=== PATIENT | female | born 1990 | race Caucasian/White ===

== ENCOUNTER 2020-10-24 07:20 | Outpatient (CLI) | payer BC, SELFPAY ==
[2020-10-24 08:19] LABS: Glucose Fasting Gestational 88 mg/dL (>/=95)
[2020-10-24 10:45] LABS: Glucose 1 Hour Gest 168 mg/dL (>/=180)
[2020-10-24 11:01] LABS: Glucose 2 Hour Gest 136 mg/dL (>/= 155)
[2020-10-24 11:51] LABS: Glucose 3 Hour Gest 83 mg/dL (>/=140)
== END 2020-10-24 07:21 | disposition home or self-care (01) ==
PROVIDERS: Visit Provider Obstetrics & Gynecology
DX: O99.810 Abnormal glucose complicating pregnancy (principal); Z3A.00 Weeks of gestation of pregnancy not specified
CPT/HCPCS: 36415; 82951; 82952

== ENCOUNTER 2020-11-30 02:10 | Inpatient (IN) | payer BC, SELFPAY ==
[2020-11-30] VITALS (18 sets, daily range): BP systolic 96–121; BP diastolic 54–75; PULSE 74–102; RESP 16–20; TEMP 36.5–37.1; O2SAT 99; BMI 29.3
--- OUTSIDE RECORDS SUMMARY | 2020-11-30 02:23 | XMS_ITS ---
:1990 Author Care Team Providers Name Role Phone ANNALISA BRIDGES MD Primary Care Provider [phone] Allergies Code Code System Name Reaction Severity Status Onset NKDA ? Medications Name Status Start Date Stop Date ? ? ampicillin 500 mg capsule Completed ? 2019 Diflucan 150 mg tablet Completed 04/25/2019 take 1 tablet by oral route once Fluzone Quad (PF) 60 mcg (15 mcg x 4)/0.5 mL IM syring e Completed ? 09/30/2020 PHARMACY ADMINISTERED Lutera (28) 0.1 mg-20 mcg tablet Completed 09/17/2016 03/24/2018 take 1 tablet by oral route every day + DHA Active ? Not available Probiotic Active ? Not available Problems Name Status Onset Date Source ? Test Negative Unknown 01/01/2013 History Abnormal Cervical Papanicolaou Smear Active 07/25/2013 History Cytologic Finding Unknown 07/25/2013 History Screening for Malignant Neoplasm of Unknown 02/20/2014 History Cervix Adult Health Examination Unknown 03/07/2015 History Specialized Medical Examination Unknown 03/07/[address] Concept Unknown 03/24/[address] Concept Unknown 03/24/2018 History Secondary Amenorrhea Unknown 04/20/2018 History Miscarriage Unknown 05/08/2018 History Threatened Miscarriage Unknown 05/08/2018 History Finding of Contents of Cervix Unknown 05/08/2018 Hi story Detection Examination Unknown 08/04/2018 History Screening Unknown 08/28/2018 History , Childbirth
--- OUTSIDE RECORDS SUMMARY | 2020-11-30 02:23 | XMS_ITS | Encounter Summary ---
:1990 Author Care Team Providers Name Role Phone Claribel Sewell MD Primary Care Provider [phone] Reason for Visit OB visit [id number] Assessment and Plan 1. Routine care Discussion Note: None recorded.Patient educational handouts: No information available. Plan of Care Reminders Provider Appointments Ob Routine Saima dowling Shiloh Garciae, 12/03/2020 CNM 3:15PM Lab None ? ? recorded. Referral None ? ? recorded. Procedures None ? ? recorded. Surgeries None ? ? recorded. Imaging None ? ? recorded. Medications Name Start Date ? ? + DHA ? Probiotic ? Medications Administered None recorded. Vitals Height Weight BMI Blood Pressure 5 ft 6.5 in 176 lbs 28 kg/m2 106/78 mm[Hg] Results Lab Results None recorded. Allergies Code Code System Name Reaction Severity Onset NKDA ? ? ? Problems Name Status Onset Date Source ? Abnormal Cervical Papanicolaou Smear Active 07/25/2013 History Active 06/19/2020 ?
--- OUTSIDE RECORDS SUMMARY | 2020-11-30 02:23 | XMS_ITS | Encounter Summary ---
:1990 Author Care Team Providers Name Role Phone Claribel Sewell MD Primary Care Provider [phone] Reason for Visit OB visit OB [id number] EDC 12/31/2020 LMP 03/26/2020 Assessment and Plan Assessment Note Patient is ___weeks . Discu ssed plan. 1. Routine care Discussion Note: None recorded.Patient educational handouts: No information available. Plan of Care Reminders Provider Appointments Ob Routine Saima Guzman, 12/03/2020 CNM 3:15PM Lab None ? ? recorded. Referral None ? ? recorded. Procedures None ? ? recorded. Surgeries None ? ? recorded. Imaging None ? ? recorded. Medications Name Start Date ? ? + DHA ? Probiotic ? Medications Administered None recorded. Vitals Height Weight BMI Blood Pressure 5 ft 6.5 in 185 lbs 29.4 kg/m2 105/68 mm[Hg] Results Lab Results None recorded. Allergies Code Code System Name Reaction Severity Onset NKDA ? ? ? Problems Name Status Onset Date Source ?
--- OUTSIDE RECORDS SUMMARY | 2020-11-30 02:23 | XMS_ITS | Encounter Summary ---
:1990 Author Care Team Providers Name Role Phone Claribel Sewell MD Primary Care Provider [phone] Reason for Visit None recorded. Assessment and Plan 1. screening for malfo rmation ? US, obstetric, 2nd or 3rd trimester Discussion Note: None recorded.Patient educational handouts: No information available. Plan of Care Reminders Provider Appointments Ob Routine Saima Guzman, 12/03/2020 CNM 3:15PM Lab None ? ? recorded. Referral None ? ? recorded. Procedures None ? ? recorded. Surgeries None ? ? recorded. Imaging , [place] [facility], 2Nd or 3Rd 09/05/2020 Trimester Medications Name Start Date ? ? + DHA ? Probiotic ? Medications Administered None recorded. Vitals None recorded. Results Lab Results None recorded. Allergies Code Code System Name Reaction Severity Onset NKDA ? ? ? Problems Name Status Onset Date Source ? Abnormal Cervical Papanicolaou Smear Active 07/25/2013 History Active 06/19/2020 ? Procedu
--- OUTSIDE RECORDS SUMMARY | 2020-11-30 02:23 | XMS_ITS | Encounter Summary ---
:1990 Author Care Team Providers Name Role Phone Claribel Sewell MD Primary Care Provider [phone] Reason for Visit None recorded. Assessment and Plan 1. screening ? US, obstetric, follow-up Discussion Note: None recorded.Patient educational handouts: No information available. Plan of Care Reminders Provider Appointments Ob Routine Saima Guzman, 12/03/2020 CNM 3:15PM Lab None ? ? recorded. Referral None ? ? recorded. Procedures None ? ? recorded. Surgeries None ? ? recorded. Imaging , [place] [facility], Follow-up 09/30/2020 Medications Name Start Date ? ? + DHA ? Probiotic ? Medications Administered None recorded. Vitals None recorded. Results Lab Results None recorded. Allergies Code Code System Name Reaction Severity Onset NKDA ? ? ? Problems Name Status Onset Date Source ? Abnormal Cervical Papanicolaou Smear Active 07/25/2013 History Active 06/19/2020 ? Procedures [facility]
--- OUTSIDE RECORDS SUMMARY | 2020-11-30 02:23 | XMS_ITS | Encounter Summary ---
:1990 Author Care Team Providers Name Role Phone Claribel Sewell MD Primary Care Provider [phone] Reason for Visit None recorded. Assessment and Plan 1. Poor growth affecting m anagement ? US, obstetric, follow-up Discussion Note: None recorded.Patient educational handouts: No information available. Plan of Care Reminders Provider Appointments Ob Routine Saima Guzman, 12/03/2020 CNM 3:15PM Lab None ? ? recorded. Referral None ? ? recorded. Procedures None ? ? recorded. Surgeries None ? ? recorded. Imaging , [place] [facility], Follow-up 10/31/2020 Medications Name Start Date ? ? + DHA ? Probiotic ? Medications Administered None recorded. Vitals None recorded. Results Lab Results None recorded. Allergies Code Code System Name Reaction Severity Onset NKDA ? ? ? Problems Name Status Onset Date Source ? Abnormal Cervical Papanicolaou Smear Active 07/25/2013 History Active 06/19/2020 ? Procedures
--- OUTSIDE RECORDS SUMMARY | 2020-11-30 02:23 | XMS_ITS | Encounter Summary ---
:1990 Author Care Team Providers Name Role Phone Claribel Sewell MD Primary Care Provider [phone] Reason for Visit OB visit OB [id number] EDC 12/31/2020 LMP 03/26/2020 Assessment and Plan Assessment Note Patient is _24__weeks . Dis cussed plan. 1. Routine care Discussion Note: None [...] BMI Blood Pressure 5 ft 6.5 in 171 lbs 27.2 kg/m2 109/71 mm[Hg] Results Lab Results None recorded. Allergies Code Code System Name Reaction Severity Onset NKDA ? ? ? Problems Name Status Onset Date Source ?
--- OUTSIDE RECORDS SUMMARY | 2020-11-30 02:23 | XMS_ITS | Encounter Summary ---
:1990 Author Care Team Providers Name Role Phone Claribel Sewell MD Primary Care Provider [phone] Reason for Visit OB visit OB [id number] EDC 12/31/2020 LMP 03/26/2020 Assessment and Plan Assessment Note Patient is __31_weeks . Dis cussed plan. Additional precautionary measures were taken to minimize potentia l exposure to the Covid-19 virus during this patient?s visit, including available fernandez d public health technologist upon arrive, temperature check and being asked a series of screening qu estions. All staff wore face coverings during this encounter, as well as provided jarad tional cleaning and sanitizing of all surfaces, including countertops, pens, c hairs, door handles, light switches, etc, prior to and following the patient?s vis it. 1. Routine care Discussion Note: None recorded.Patient educational handouts: No information available. Plan of Care Reminders Provider Appointments Ob Routine Saima Guzman, 12/03/2020 CNM 3:15PM Lab None ? ? recorded. Referral None ? ? recorded. Procedures None ? ? recorded. Surgeries None ? ? recorded. Imaging None ? ? recorded. Medications Name Start Date ? ? + DHA ? Probiotic ? Medications Admi
--- OUTSIDE RECORDS SUMMARY | 2020-11-30 02:23 | XMS_ITS | Encounter Summary ---
:1990 Author Care Team Providers Name Role Phone Claribel Sewell MD Primary Care Provider [phone] Reason for Visit OB visit OB [id number] EDC 12/31/2020 LMP 03/26/2020 Assessment and Plan Assessment Note Patient is __29_weeks . Dis cussed plan. 1. Routine care [...] BMI Blood Pressure 5 ft 6.5 in 180 lbs 28.6 kg/m2 110/70 mm[Hg] Results Lab Results None recorded. Allergies Code Code System Name Reaction Severity Onset NKDA ? ? ? Problems Name Status Onset Date Source ?
[2020-11-30] MEDS: OXYTOCIN 10 UNITS/ML VIAL IM (02:28)
--- NOTE | 2020-11-30 02:51 | WPDOBADMIT ---
Obstetrics - Admit Note Admission Note: 30 y/o @ 35 weeks presented in spontaneous labor at 10cm. record reviewed. No pertinent additions to the history and/or any subsequent changes in the physical findings that are not consistent with the expected course of the were found. Additions to the history and/or subsequent changes in the physical findings follow. None.
--- NOTE | 2020-11-30 02:52 | P.PCNOB_ITS ---
OB - Delivery Note Procedure Delivery date: 11/30/20 events: Labor < 37 Weeks Intrapartal events: Precipitous Labor < 3 hours Induction method: none Delivery monitor: none and external FHT (Brief fht tracing prior to delivery) Route of delivery: Episiotomy description: None Laceration Description: Perineal - 2nd Degree Quantitative Blood Loss (ml): 154 Anesthesia type: Local [place] Baby Date of : 11/30/20 Time of : 02:20 Weeks of gestation at delivery: 35 Weight (pounds): 5 Weight (ounces): 8 presentation: vertex position: Left Occiput Anterior Placenta delivery description: Spontaneous cord vessel description: Delayed Cord Clamping Narrative: Precipitous delivery. Mother and baby in stable condition. Cord gasses collected and handed off to staff.
--- NOTE | 2020-11-30 06:03 | LDADM ---
This patient, Amaya Navarro, was admitted to Labor/Delivery/Recovery 103 on 11/30/20 at 02:10. Plans for labor, pain management and were discussed with patient. Patient/family oriented to hospital policies and general routines including ID bracelet, bed and alarms, visiting hours, pain management, procedures, bathroom and other care routines, personal items, smoking policy, room service/diet and guest tray routines, security routines, and visiting hours. Patient/Family are encouraged to report perceived risks to care and to ask questions if they do not understand what they are told or what they should do. See [facility]BI[facility] for further documentation.
[2020-11-30] MEDS: WITCH HAZEL 40 PADS 1 PAD TOPICAL (06:28)
[2020-11-30] MEDS: BENZOCAINE 20% AER SPR (*SP) 56 GM CAN 1 SPRAY TOPICAL (06:29)
[2020-11-30 06:54] LABS: Basophils Percent Auto 0.2 % (0.2-1.2); Eosinophils Percent Auto 0.1 % (0-4.4); Hematocrit 33.3 % (37.0-47.0); Hemoglobin 11.4 g/dL (12.0-15.0); Immature Granulocyte Absolute 0.16 K/mm3 (0.00-0.031); Immature Granulocyte Percent A 0.9 % (0-0.5); Lymphocytes Absolute Auto 1.05 K/mm3 (0.9-3.2); Lymphocytes Percent Auto 5.9 % (18.3-44.2); Mean Corpuscular HGB Conc 34.2 g/dl (32-36); Mean Corpuscular Hemoglobin 30.6 pg (26-34); Mean Corpuscular Volume 89.3 fl (80-100); Mean Platelet Volume 9.4 fl (7.4-10.4); Monocytes Absolute Auto 0.7 K/mm3 (0.1-0.6); Monocytes Percent Auto 3.9 % (2.6-8.5); Neutrophils Absolute Auto 15.8 K/mm3 (1.3-6.7); Platelet Count Result 246 k/mm3 (150-375); Red Blood Count 3.73 M/mm3 (4.2-5.4); Red Cell Distribution Width 12.5 % (11.5-14.5); White Blood Count 17.8 K/mm3 (4.5-10.0)
--- NOTE | 2020-11-30 07:04 | PC.NURSE ---
Patient transferred to post room # 292 per wheelchair. Support person present. Oriented to unit, room, information board, rooming in, admission packet and security measures. Patient verbalizes understanding.
[2020-11-30 09:06] LABS: Rapid Plasma Reagin Non-Reactive (NonReactive)
[2020-11-30] MEDS: MULTIVIT/MIN/PREN/FOL AC/IRON TABLET 1 TAB PO (09:42)
[2020-11-30] MEDS: DOCUSATE SODIUM 100 MG CAPSULE PO ×2 (09:42→16:34)
[2020-11-30] MEDS: IBUPROFEN 600 MG TABLET PO ×3 (09:43→23:22)
[2020-11-30] MEDS: ACETAMINOPHEN 325 MG TABLET 650 MG PO ×3 (09:43→23:22)
[2020-12-01] VITALS: BP 114/73; PULSE 67; RESP 16; TEMP 36.7; O2SAT 100
[2020-12-01 06:52] LABS: Hematocrit 32.6 % (37.0-47.0); Hemoglobin 10.9 g/dL (12.0-15.0)
[2020-12-01] MEDS: BENZOCAINE 20% AER SPR (*SP) 56 GM CAN 1 SPRAY TOPICAL (07:05)
[2020-12-01] MEDS: WITCH HAZEL 40 PADS 1 PAD TOPICAL (07:05)
[2020-12-01] MEDS: DOCUSATE SODIUM 100 MG CAPSULE PO ×2 (07:05→15:37)
[2020-12-01] MEDS: MULTIVIT/MIN/PREN/FOL AC/IRON TABLET 1 TAB PO (07:05)
[2020-12-01] MEDS: LANOLIN (LANSINOH) 7.5 GM CREAM 1 APPLIC TOPICAL (07:05)
[2020-12-01] MEDS: IBUPROFEN 600 MG TABLET PO ×2 (07:06→15:36)
[2020-12-01] MEDS: ACETAMINOPHEN 325 MG TABLET 650 MG PO (07:07)
[2020-12-01 07:43] VITALS: BP 109/72; PULSE 72; PULSE 77; RESP 18; TEMP 36.4
--- NOTE | 2020-12-01 07:58 | PM.OBPNVD ---
OB - PN: Subj Subjective Date/time seen: 12/01/20 07:58 Patient comments: no complaints baby status: doing well OB - PN: Obj Data Labs CBC & Chem 7: 12/01/20 05:27 Labs: Laboratory Results - last 24 hr 11/30/20 12/01/20 06:44 05:27 Hgb 10.9 L Hct 32.6 L RPR Non-reactive OB - PN A/P Plan day: 1 Plan: routine care Time Spent With Patient Time: Total time spent is greater than 50% in coordination of care (as documented) at patient's floor/unit and/or counseling patient: Time with patient: less than 15 minutes Review of Systems Review of Systems: All systems reviewed & are unremarkable except as noted in HPI and below Exam Narrative: Exam Narrative: Fundus firm and vaginal flow controlled. No lower ext redness, warmth, or edema. Negative homans. Const: General: comfortable Chest: Breast/axilla inspection: normal inspection of the breasts Resp: Effort & Inspection: normal respiratory effort Cardio: Rate: regular rate GI: GI Palp: Yes Soft to palpation Psych: Appearance: grossly normal Affect: normal affect Attitude: cooperative Thought content: Yes Normal thought content present Judgement: Good judgement present (Psych)
--- NOTE | 2020-12-01 09:30 | PC.NURSE ---
Mother called out for assist with feeding. Consulted with patient, reports had issues with latching after delivery. Mother was given the nipple shield for latch on right breast. is now latching to left without issue. Infant is 35 4/7 weeks. Discussed how early gestation may impact latch and milk supply. Right nipple has a smaller profile than left, right breast is also more firm at areola, impacting infant latch. Mother reports pain when using shield on right breast and has been feeding each feeding on left. Offered and explained the Latch Assist to draw out right nipple. Latch Assist to mother.. Instructions given on application and cleaning of shield. Right nipple responded well, once removed nipple quickly returned to same size. Mother attempted for 5 minutes to right breast without a successful latch. Reviewed infant feeding cues, frequencies, duration of feedings, feeding elimination flow sheet, and signs of adequate intake. Demonstrated stimulation techniques to wake infant for feeding. Assisted with to breast. Reviewed positioning/alignment in cross cradle, holding breast in U hold and guided asymmetrical latch on. was able to latch correctly within a few attempts to left. nursed eagerly, with steady draws and frequent swallowing noted. Reviewed signs of a correct latch, effective nursing and suck swallow ratio. was able to maintain latch. Mother reported tenderness at times, infant had slipped to shallow latch. Demonstrated how to adjust latch more deeply while feeding. Mother quickly reports she can feel is latched more deeply and has minimal tenderness. Suggested to stimulate infant while feeding to keep awake and nursing effectively for increased stimulation and increased intake. Instructed mother to call out for RN assistance if she is unable to latch infant for feeding or she has discomfort with nursing. Instructed feeding should be initiated three hours from start of last feeding or if feeding cues are noted before. Mother voiced understanding of information shared.
--- NOTE | 2020-12-01 10:30 | PC.NURSE ---
Suggested mother initiate pumping due to prematurity and not latching to right breast. Breast pump provided due to . Instructions given on breast pump care and usage, pumping schedule, nipple care, and collection and storage of breast milk. Encouraged [id number], breast massage and manual expression to stimulate supply. Assessed patient for correct flange size, placement and draw. Patient verbalizes and demonstrates understanding of instructions.
--- NOTE | 2020-12-01 12:05 | PC.NURSE ---
Mother requested a syringe to feed EBM, mother syringed fed first child for a few days. Reviewed positioning/alignment and small amounts slowly to check pocket. .5 mls to
--- NOTE | 2020-12-01 19:00 | PC.NURSE ---
Instructed mom on use of tea bags and gel pads for sore nipples. Encouraged mom to start 3Q 3 feedings and allow breasts to rest for 1-2 feedings. Pt. verbalized that she would like to do that. Gel bags and tea bags given. assisting at bedside.
[2020-12-01 19:30] VITALS: BP 123/68; PULSE 81; RESP 16; TEMP 36.7; O2SAT 100
[2020-12-02] MEDS: ACETAMINOPHEN 325 MG TABLET 650 MG PO ×2 (00:23→08:18)
[2020-12-02] MEDS: IBUPROFEN 600 MG TABLET PO ×2 (00:23→08:18)
--- NOTE | 2020-12-02 07:49 | PM.OBPNVD ---
OB - PN: Subj Subjective Date/time seen: 12/02/20 07:49 Patient comments: no complaints baby status: doing well OB - PN: Obj Data Labs CBC & Chem 7: 12/01/20 05:27 OB - PN A/P Plan day: 2 Plan: routine care and discharge home (F/U in 4 weeks) Time Spent With Patient Time: Total time spent is greater than 50% in coordination of care (as documented) at patient's floor/unit and/or counseling patient: Time with patient: less than 15 minutes Review of Systems Review of Systems: All systems reviewed & are unremarkable except as noted in HPI and below Exam Narrative: Exam Narrative: Fundus firm and vaginal flow controlled. No lower ext redness, warmth, or edema. Negative homans. Const: General: comfortable Chest: Breast/axilla inspection: normal inspection of the breasts Resp: Effort & Inspection: normal respiratory effort Cardio: Rate: regular rate GI: GI Palp: Yes Soft to palpation Psych: Appearance: grossly normal Affect: normal affect Attitude: cooperative Thought content: Yes Normal thought content present Judgement: Good judgement present (Psych)
--- NOTE | 2020-12-02 08:15 | PC.NURSE ---
Patient instructed to view the discharge video Mother & Baby Care, The First Two Weeks . Patient was given the opportunity and encouraged to ask questions. Patient verbalized understanding of information shared and has been given the mother/baby guide for home reference.
[2020-12-02] MEDS: MULTIVIT/MIN/PREN/FOL AC/IRON TABLET 1 TAB PO (08:17)
[2020-12-02 09:00] VITALS: BP 95/77; PULSE 82; RESP 18; TEMP 37.1; O2SAT 99
--- NOTE | 2020-12-02 09:00 | PC.NURSE ---
Mother called out for assist with feeding. Consulted with patient, reporting infant has fed inconsistently during the night. Mother has pain with feeding bilaterally. Previous day infant was latching to left breast and unable to latch to right. Mother believes infant has a few shallow feedings and now both nipples are bruised and scabbed. Reviewed nipple care of warm moist compresses several times per day, lanolin and gel pads. Mother began with supplementation after breastfeedings due to weight loss. Mother was teary discussing formula use, stating she had a 36 4/7 week with first child that required supplementation and did not to have to use formula for this child. Assured mother needs the supplement due to weight loss, and may short term once her milk is in she may give EBM or may not require. Weight, output and jaundice will be the deciding factors she will need to have freq. visits with her home ICP. Discussed the early 35 week infant, establishing may have its own unique set of circumstances due to their immaturity. infants may be less alert, have less stamina and may have issues with latch, suck and swallow. With the possible inability to have a vigorous suck swallow, infants may not be adequately stimulating mother and/or able to have adequate milk transfer. Reviewed feeding cues, frequencies, duration of feedings, feeding elimination flow sheet, and signs of adequate intake. Demonstrated stimulation techniques to wake for feeding. Assisted with to breast. Reviewed positioning/alignment in cross cradle, holding breast in U hold and guided asymmetrical latch on. was able to latch correctly within a few attempts. Infant nursed eagerly, with sort chewy sucks with intermittent steady draws and occasional swallowing noted. Reviewed signs of a correct latch, effective nursing and suck swallow ratio. Infant was able to maintain latch. Mother reported tenderness at times, had slipped to shallow latch. Demonstrated how to adjust latch more deeply while feeding. Mother quickly reports she can feel is latched more deeply and has minimal tenderness. Suggested to stimulate infant while feeding to keep infant awake and nursing effectively for increased stimulation and increased intake. Instructed feeding should be initiated three hours from start of last feeding or if feeding cues are noted before. Mother voiced understanding of information shared. Mother will follow breastfeedings with supplementation of 15 mls EBM/formula and pumping. Reviewed instructions given on breast pump care and usage, pumping schedule, nipple care, and collection and storage of breast milk. Encouraged [id number], breast massage and manual expression to stimulate supply. Assessed patient for correct flange size, placement and draw. Patient verbalizes and demonstrates understanding of instructions. Mother verbalizes she is able to independently latch with appropriate positioning/alignment. She has slight nipple discomfort this feeding, is feeding as required and waking infant to feed if needed. Infant is currently meeting outcomes for weight, output, jaundice and feeding frequencies. Mother states she feels confident to continue effective at home. Reviewed transition to breast milk, signs of adequate intake, and engorgement/relief. Instructed to call ICP if intake/output less than required. Reviewed regular medications mother is taking. Information provided per [facility]. Reviewed community resources on the [facility] website and in the Mom/Baby guide. Information on outpatient services provided. Mother has no further questions at this time.
[2020-12-04 10:29] VITALS: BP 106/66; PULSE 71; RESP 20; TEMP 36.8; O2SAT 100
--- NOTE | 2020-12-22 08:22 | PM.OBDSVD ---
DS: Admitting Diagnosis Admitting Diagnosis Admitting Diagnosis: Labor DS: Discharge Diagnosis Discharge Diagnosis (1) Vaginal delivery: Code(s): O80 - Encounter for full-term uncomplicated delivery Status: Acute OB - DS: Summary OB Procedures : None OB Procedures Intrapartum: Spontaneous Vag Delivery and Other (Precip delivery with possible abruption.) OB Procedures: : None Time Spent with Patient Time attestation: Total time spent providing and/or coordinating discharge services: DS: Data Data Completed and Pending Completed studies during hospitalization: Pending at discharge 11/30/20 02:27 Surgical [PTH] Routine Discharge Plan Discharge Attending physician on discharge: Tri Suarez Consulting providers: Melodie,Claribel Banuelos ; Tri Suarez Discharging Clinician: Tri Suarez Patient Disposition: Home, Self-Care Activity: pelvic rest Diet: as tolerated Discharge Instructions: Education: Mom and Baby Guide and Preeclampsia Handout Given to: Mother Follow-Up: Call your delivering provider's office for an appointment to be seen in: 4 Weeks Mom and baby should come to the [facility] for the follow-up appointment. Appointment Date/Time: December 04, 2020 at 10:00 am What to expect at your follow-up visit: Physical Assessment Call [phone] if you are unable to keep your appointment time. BREAST CARE: * Wear a snug supportive bra. * For engorgement discomfort: Breast Feeding: * Apply warm moist washcloths * Express milk as needed to relieve engorgement * Wear loose clothing * For sore nipples: * Identify correct latch-on * Apply warm moist washcloths before and after nursing * Air dry nipples after nursing * May apply Lansinoh cream to nipples EPISIOTOMY/PERINEAL CARE: * Until bleeding stops, use your edna bottle after urinating * Change your pad frequently throughout the day * You may take sitz baths several times a day (fill your bathtub with warm water and soak for 20 minutes.) Do NOT bathe in the water * No tub baths until seen by your physician - You may shower ACTIVITY: * Rest as much as possible. * Do not exercise or lift anything heavier than your baby (such as laundry or other children.) * Avoid stairs or driving as much as possible. * Do not put anything into the vagina. No douching, tampons, or sexual activity until seen by physician. NOTIFY PHYSICIAN IF YOU HAVE ANY QUESTIONS OR IF ANY OF THE FOLLOWING SYMPTOMS OCCUR: * If your episiotomy or stitches become red, swollen, or more painful than what you have experienced in the hospital. * If your vaginal bleeding becomes foul smelling. * If your vaginal bleeding becomes more heavy than a period or if your bleeding changes from pink to bright red. However, you may pass an occasional walnut-sized clot once or twice for the first week . * If you experience a sharp, shooting pain in you calves. * If you discover a hard, reddened area on your breast or if you experience flu-like symptoms. DIET: * Eat regular, well-balanced meals. * Drink plenty of fluids daily. If , drink to thirst. Stand Alone Forms: General Discharge Information Follow-up/Referrals: Vinicio Salazar MD [Physician] - 4 Weeks Discharge Medications: Continued Classic 28 mg iron- 800 mcg Tablet 1 tablet PO DAILY RF: 0 Date of admission: 11/30/20 02:10 Primary Care Provider: PHYSICIAN NOT ON STAFF,NONSTAFF Admitting Provider: Vinicio Salazar Attending physician on admission: Vinicio Salazar Condition: Stable
== END 2020-12-02 14:49 | disposition home or self-care (01) | DRG 807 ==
LOC: ANHLDR 03:20 → ANHOB2 07:11
PROVIDERS: Advanced Practice Midwife; Admitting Provider Obstetrics & Gynecology; Visit Provider Obstetrics & Gynecology
DX: O60.14X0 Preterm labor third trimester with preterm delivery third trimester, not applicable or unspecified (principal); Z37.0 Single live birth; Z3A.35 35 weeks gestation of pregnancy; O62.3 Precipitate labor; O70.1 Second degree perineal laceration during delivery
CPT/HCPCS: 36415; 85014; 85018; 85025; 86592; 86850; 86900; 86901; 88307; A9270; J2590

== ENCOUNTER → 2023-03-15 07:00 | Outpatient (CLI) | payer OTHER, SELFPAY ==
--- NOTE | ~2023-03-15 | MR_ITS ---
MRI of the left knee Clinical history: Pain Technique: Coronal proton density and proton density-weighted images, sagittal proton-density and T2 fat-sat images, and axial proton-density fat-saturated images were acquired. Findings: Anterior and posterior cruciate ligaments are intact. Medial collateral ligament and the la teral collateral ligament complex are intact. Popliteus tendon is intact. Medial and lateral menisci are intact, without evidence of tear. Articular cartilage is well preserved in the medial lateral compartment. There is grade I chondromala carol the central aspect of the femoral trochlea. Patellar articular cartilage is well preserved, with minimal chondromalacia along the medial facet. Bone marrow signals are unremarkable. Extensor mechanism is intact. Minimal joint effusion present. No Alanis's cyst. 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 Minimal joint effusion. Reviewed, dictated and finalized at [facility]. 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 Minimal joint effusion.
== END ==
PROVIDERS: PCP Family Medicine
DX: M25.462 Effusion, left knee (principal); M22.42 Chondromalacia patellae, left knee; M25.562 Pain in left knee
CPT/HCPCS: 73721